=== PATIENT | male | born 1970 | race Caucasian/White ===

== ENCOUNTER 2024-09-04 13:36 | Emergency (ER) | payer MEDICAID ==
[~2024-09-04] VITALS: Ht 157.5 cm; Wt 54.4 kg
[2024-09-04 13:42] VITALS: O2SAT 97
[2024-09-04 13:45] VITALS: BP 116/75; PULSE 72; TEMP 98.3; O2SAT 98
[2024-09-04] MEDS ORDERED: OXYM30SP26 BOTHNSTRLS (15:09)
[2024-09-04] MEDS ORDERED: AMOX1TAB16 MT (15:09)
== END 2024-09-04 18:21 | disposition home or self-care (01) ==
LOC: ER 13:36
DX: H91.91 Unspecified hearing loss, right ear (principal)
CPT/HCPCS: 99284